=== PATIENT | female | born 1955 | race Caucasian/White ===

== ENCOUNTER 2017-07-22 12:57 | Emergency (ER) | payer OTHER ==
[~2017-07-22] VITALS: Ht 162.6 cm; Wt 110.7 kg
[2017-07-22] MEDS ORDERED: NORCO 5-325 TA1 EAC1 PO (14:07)
[2017-07-22 14:58] VITALS: BP 184/103
== END 2017-07-22 14:59 | disposition home or self-care (01) ==
LOC: M.ERS 12:57
DX: S62.002A Unspecified fracture of navicular [scaphoid] bone of left wrist, initial encounter for closed fracture (principal); S50.02XA Contusion of left elbow, initial encounter; W18.39XA Other fall on same level, initial encounter; Y93.89 Activity, other specified; Y92.481 Parking lot as the place of occurrence of the external cause; Y99.8 Other external cause status